=== PATIENT | male | born 1955 | race Caucasian/White ===

== ENCOUNTER → 2016-11-13 | Day surgery (SDC) | payer BC ==
[~2016-11-13] VITALS: Ht 185.4 cm; Wt 82.6 kg
[~2016-11-13] MED LIST: DELTASONE10 MG PO; DELTASONE20 MG PO; DELTASONE50 MG PO; DILAUDID2 MG PO; HUMIRA40 MG/0.1 IM; MERCAPTOPURINE50 MG PO; NORCO 5-325 TA1 EACH PO; PENTASA500 MG PO; PREDNISONE20 MG PO; PROTONIX40 MG PO; TYLENOL325 MG PO; XANAX1 MG PO
== END | disposition disaster alternative care site (69) ==
LOC: GPOC 11-10 14:00 → GEND 06:47
PROC: 0DB98ZX Excision of Duodenum, Via Natural or Artificial Opening Endoscopic, Diagnostic (ICD-10-PCS; principal; 2016-11-13)
PROC: 0DBB8ZX Excision of Ileum, Via Natural or Artificial Opening Endoscopic, Diagnostic (ICD-10-PCS; 2016-11-13)
PROC: 0DBP8ZX Excision of Rectum, Via Natural or Artificial Opening Endoscopic, Diagnostic (ICD-10-PCS; 2016-11-13)
PROC: 0DBN8ZX Excision of Sigmoid Colon, Via Natural or Artificial Opening Endoscopic, Diagnostic (ICD-10-PCS; 2016-11-13)
PROC: 0DBG8ZX Excision of Left Large Intestine, Via Natural or Artificial Opening Endoscopic, Diagnostic (ICD-10-PCS; 2016-11-13)
PROC: 0DBF8ZX Excision of Right Large Intestine, Via Natural or Artificial Opening Endoscopic, Diagnostic (ICD-10-PCS; 2016-11-13)
PROC: 0DBL8ZX Excision of Transverse Colon, Via Natural or Artificial Opening Endoscopic, Diagnostic (ICD-10-PCS; 2016-11-13)
DX: K52.9 Noninfective gastroenteritis and colitis, unspecified (principal); K51.30 Ulcerative (chronic) rectosigmoiditis without complications; K31.89 Other diseases of stomach and duodenum; K50.90 Crohn's disease, unspecified, without complications; Z87.891 Personal history of nicotine dependence
CPT/HCPCS: J7030